=== PATIENT | female | born 1990 | race Two or more races ===

== ENCOUNTER 2018-04-23 17:02 | Outpatient (CLI) | payer MEDICAID ==
--- NOTE | 2018-04-23 21:36 | Ultrasound Report ---
Reason: ENCTR FOR TEST, RESULT POSITIVE Procedure Date: 04/23/2018 Accession Number: [id number] / [id number] Procedure: US - OB First Trimester CPT Code: FULL RESULT: EXAM: FIRST TRIMESTER OBSTETRIC ULTRASOUND (Less than 11 weeks) EXAM DATE: 04/23/2018 05:14 PM. CLINICAL HISTORY: ENCTR FOR TEST, RESULT POSITIVE. LMP: 02/17/2018. COMPARISONS: None. TECHNIQUE: Transabdominal ultrasound examination with static image documentation. CLINICAL DATES: EGA 9 weeks 2 days with DRAKE 11/24/2018 based on LMP. ASSESSMENT: Gestational Sac: Single intrauterine. Embryo: CRL (crown-rump length) 26 mm = 9 weeks 3 days. Cardiac activity: 166 beats per minute. Yolk sac: 3.2 mm. Amniotic fluid: Not accurately assessed at this gestational age. Early placenta: Not visible at this gestational age. Other: No perigestational fluid collection demonstrated. MATERNAL STRUCTURES: Uterus: Anteverted. Unremarkable. Cervix: Closed. Bilateral ovaries appear unremarkable aside from a 9 mm left ovarian corpus luteal cyst. Free Fluid: None. Other: None. IMPRESSION: 1. Single viable intrauterine at EGA 9 weeks 3 days based on crown-rump length, which is concordant with clinical dates. 2. Assigned dating is DRAKE 11/24/2018 based on LMP. HARESH
== END 2018-04-23 17:03 | disposition home or self-care (01) ==
LOC: DI 17:02
PROVIDERS: ATTEND Registered Nurse
DX: Z32.01 Encounter for pregnancy test, result positive (principal); Z3A.09 9 weeks gestation of pregnancy
CPT/HCPCS: 76801

== ENCOUNTER 2018-05-07 08:00 | Outpatient (CLI) | payer MEDICAID ==
[2018-05-07 19:17] LABS: MUDS CUTOFF CONCENTRATIONS CUTOFF CONC BELOW:
[2018-05-07 19:47] LABS: AMPHETAMINE SCREEN,URINE NEGATIVE (NEGATIVE); COCAINE SCREEN URINE NEGATIVE (NEGATIVE); METHAMPHETAMINES SCREEN, URINE NEGATIVE (NEGATIVE); OPIATE SCREEN, URINE NEGATIVE (NEGATIVE)
[2018-05-07 19:48] LABS: BENZODIAZEPINES SCREEN, URINE NEGATIVE (NEGATIVE); METHADONE SCREEN, URINE NEGATIVE (NEGATIVE); OXYCODONE SCREEN, URINE NEGATIVE (NEGATIVE); PROPOXYPHENE SCREEN, URINE NEGATIVE (NEGATIVE); TRICYCLIC ANTIDEPRESSANT,URINE NEGATIVE (NEGATIVE)
== END 2018-05-07 08:01 | disposition home or self-care (01) ==
LOC: LAB.R 08:00
PROVIDERS: ATTEND Registered Nurse
DX: Z36.9 Encounter for antenatal screening, unspecified (principal)
CPT/HCPCS: 80306; 87491; 87591

== ENCOUNTER 2018-05-22 11:41 | Outpatient (CLI) | payer MEDICAID ==
[2018-05-22 11:58] LABS: BASOPHILS # (AUTO) 0.1 10^3/uL (0.0-0.1); BASOPHILS % (AUTO) 0.7 %; BILIRUBIN,URINE NEGATIVE (NEGATIVE); EOSINOPHILS # (AUTO) 0.1 10^3/uL (0.0-0.7); EOSINOPHILS % (AUTO) 1.3 %; GLUCOSE, URINE (UA) NEGATIVE (NEGATIVE); HGB - HEMOGLOBIN 12.8 g/dL (12.0-16.0); KETONES,URINE (UA) NEGATIVE (NEGATIVE); LEUKOCYTE ESTERASE, URINE TRACE (NEGATIVE); LYMPHOCYTES # (AUTO) 2.1 10^3/uL (1.5-3.5); LYMPHOCYTES % (AUTO) 18.3 %; MEAN CORPUSCULAR HEMOGLOBIN 29.7 pg (27.0-31.0); MEAN CORPUSCULAR HGB CONC 34.1 g/dL (32.0-36.0); MEAN PLATELET VOLUME 7.8 fL (7.9-10.8); MONOCYTES # (AUTO) 0.8 10^3/uL (0.0-1.0); MONOCYTES % (AUTO) 6.9 %; NEUTROPHILS # (AUTO) 8.4 10^3/uL (1.5-6.6); NEUTROPHILS % (AUTO) 72.8 %; NITRITE,URINE NEGATIVE (NEGATIVE); OCCULT BLOOD,URINE TRACE-INTA (NEGATIVE); PLT - PLATELET COUNT 240 10^3/uL (130-450); PROTEIN,URINE NEGATIVE (NEGATIVE); RED CELL DISTRIBUTION WIDTH 13.2 % (12.0-15.0); UROBILINOGEN,URINE 0.2 (NORMAL) E.U./dL (NORMAL); WHITE BLOOD COUNT 11.6 x10^3/uL (4.8-10.8)
[2018-05-22 12:04] LABS: CLARITY,URINE HAZY (CLEAR); RBC,URINE 0-5 /HPF (0-5); SQUAMOUS EPITHELIAL CELL,UR MOD Squamous (<= Few)
[2018-05-22 12:05] LABS: BACTERIA,URINE Few /HPF (None Seen)
[2018-05-22 12:17] LABS: HB2 TOTAL 13.6 g/dL; HEMOGLOBIN A1C 0.51 g/dL; HEMOGLOBIN A1C % 5.6 % (4.6-6.2)
[2018-05-24 12:46] LABS: HEPATITIS B SURFACE ANTIGEN NON-REACTIVE (NON-REACTIVE); HEPATITIS C ANTIBODY NON-REACTIVE (NON-REACTIVE)
[2018-05-24 13:27] LABS: HIV AG/AB 4TH GEN NON-REACTIVE (NON-REACTIVE)
== END 2018-05-22 11:42 | disposition home or self-care (01) ==
LOC: LAB 11:41
PROVIDERS: ATTEND Registered Nurse
DX: Z36.9 Encounter for antenatal screening, unspecified (principal)
CPT/HCPCS: 36415; 81001; 81599; 82947; 83036; 85025; 86592; 86762; 86803; 86850; 86900; 86901; 87340; 87389

== ENCOUNTER 2018-05-24 18:30 | Emergency (ER) | payer MEDICAID ==
[2018-05-24 18:42] VITALS: BP 113/71
[2018-05-24 20:02] LABS: BILIRUBIN,URINE NEGATIVE (NEGATIVE); GLUCOSE, URINE (UA) NEGATIVE (NEGATIVE); KETONES,URINE (UA) NEGATIVE (NEGATIVE); LEUKOCYTE ESTERASE, URINE SMALL (NEGATIVE); NITRITE,URINE NEGATIVE (NEGATIVE); OCCULT BLOOD,URINE MODERATE (NEGATIVE); PROTEIN,URINE NEGATIVE (NEGATIVE); UROBILINOGEN,URINE 0.2 (NORMAL) E.U./dL (NORMAL)
[2018-05-24 20:04] LABS: CLARITY,URINE CLOUDY (CLEAR)
[2018-05-24 20:11] LABS: BACTERIA,URINE None Seen /HPF (None Seen); SQUAMOUS EPITHELIAL CELL,UR RARE Squamous (<= Few)
[2018-05-24 20:12] LABS: CRYSTALS,URINE 3-5 Calcium Oxalate /LPF
[2018-05-24] MEDS ORDERED: NITROFURANTOIN MACRO 100 MG CAPSULE PO STA (22:21)
--- NOTE | 2018-05-24 22:23 | ED Physician Documentation ---
PD HPI FEMALE - Stated complaint Stated Complaint: FEMALE /14 WKS - Chief complaint Chief Complaint: UTI - History obtained from History obtained from: Patient - History of Present Illness Timing - onset: Other (G5 at 14 weeks with urinary dysuria and frequency for 2 days without flank pain or fevers. No vaginal bleeding or cramping.) Review of Systems Constitutional: denies: Fever, Chills GI: denies: Abdominal Pain, Nausea, Vomiting : reports: Dysuria, Frequency. denies: Incontinent, Hematuria, Discharge PD PAST MEDICAL HISTORY - Past Medical History Past Medical History: No Cardiovascular: None Respiratory: None Neuro: None Endocrine/Autoimmune: None GI: None AUTOMATION TESTER: None : None HEENT: None Psych: None Musculoskeletal: None Derm: None - Past Surgical History Past Surgical History: No - Present Medications Home Medications: Ambulatory Orders Medication Instructions Recorded Confirmed Nitrofurantoin Monohyd/M-Cryst 100 mg PO BID #10 capsule 05/24/18 [Macrobid 100 mg Capsule] - Allergies Allergies/Adverse Reactions: Allergies Allergy/AdvReac Type Severity Reaction Status Date / Time No Known Drug Allergies Allergy Verified 05/24/18 18:42 - Social History Does the pt smoke?: No Smoking Status: Never smoker Does the pt drink ETOH?: No Does the pt have substance abuse?: No - Immunizations Immunizations are current?: Yes - POLST Patient has POLST: No PD ED PE NORMAL - Vitals Vital signs reviewed: Yes - General General: Alert and oriented X 3, No acute distress - Abdomen Abdomen: Normal bowel sounds, Soft, Non tender - Female Female : Other (Bedside ultrasound demonstrates single live intrauterine with heart rate of 146) - Back Back: No CVA TTP - Neuro Neuro: Alert and oriented X 3 - Psych Psych: Normal mood, Normal affect Results - Vitals Vitals: Vital Signs - 24 hr 05/24/18 18:39 Temperature 37.1 C Heart Rate 76 Respiratory 16 Rate Blood Pressure 113/71 O2 Saturation 100 Oxygen O2 Source Room air - Labs Labs: Laboratory Tests 05/24/18 18:51 Urine Color YELLOW Urine Clarity CLOUDY Urine pH 5.0 Ur Specific [place] >=1.030 H Urine Protein NEGATIVE Urine Glucose (UA) NEGATIVE Urine Ketones NEGATIVE Urine Occult Blood MODERATE H Urine Nitrite NEGATIVE Urine Bilirubin NEGATIVE Urine Urobilinogen 0.2 (NORMAL) Ur Leukocyte Esterase SMALL H Urine RBC 11-25 H Urine WBC 11-25 H Ur Squamous Epith Cells RARE Squamous Urine Crystals 3-5 Calcium Oxalate Urine Bacteria None Seen Ur Microscopic Review INDICATED Urine Culture Comments INDICATED Departure - Departure Disposition: 01 Home, Self Care Clinical Impression: Cystitis Condition: Good Record reviewed to determine appropriate education?: Yes Instructions: ED UTI Cystitis Female Prescriptions: Nitrofurantoin Monohyd/M-Cryst [Macrobid 100 mg Capsule] 100 mg PO BID #10 caps ule Comments: We will culture your urine, the results should be done in 48-72 hours. If an antibiotic change is necessary we will call you. Return if worse in the meantime, especially if you develop increasing flank pain, fevers, or cannot keep down the medication.
== END 2018-05-24 22:31 | disposition home or self-care (01) ==
LOC: ED 18:30
DX: O23.12 Infections of bladder in pregnancy, second trimester (principal); Z3A.14 14 weeks gestation of pregnancy
CPT/HCPCS: 81001; 87086; 87181; 99283; A9270; 81003

== ENCOUNTER 2018-06-03 09:54 | Outpatient (CLI) | payer MEDICAID | END 2018-06-03 09:55 | disposition home or self-care (01) | LOC: LAB.R 09:54 | PROVIDERS: ATTEND Obstetrics & Gynecology | DX: R82.998 Other abnormal findings in urine (principal) | CPT/HCPCS: 87086; 87181 ==

== ENCOUNTER 2018-07-12 07:22 | Outpatient (CLI) | payer MEDICAID ==
--- NOTE | 2018-07-12 15:29 | Ultrasound Report ---
Reason: ENCOUNTER FOR SCREENING,UNSPECIFIED Procedure Date: 07/12/2018 Accession Number: [id number] / [id number] Procedure: US - OB Detailed Eval CPT Code: FULL RESULT: EXAM: COMPLETE OBSTETRICAL ULTRASOUND EXAM DATE: 07/12/2018 09:32 AM. CLINICAL HISTORY: anatomic survey. COMPARISON: OB FIRST TRIMESTER 04/23/2018 5:14 PM. TECHNIQUE: Real-time sonographic evaluation of the fetus performed by the bone char kiln operator. Multiple jewelry sales representative static images were saved for review. Additional transvaginal imaging to more accurately evaluate cervical length/placental position/etc. DATING: Established EGA 20 weeks 5 days with DRAKE 11/24/2018 based on by physician-stated. This compares favorably to DRAKE by first ultrasound of 11/23/2018 and today's ultrasound DRAKE of 11/22/2018. GENERAL EVALUATION [place] . Cardiac activity: 149 bpm. movement: Visualized. Presentation: Variable. Placenta: Posterior position. No evidence for previa. Umbilical cord: 3 vessel cord. Central placental cord origin. Amniotic fluid: Subjectively normal. Four-quadrant GASPER 13 cm. MVP 3.7 cm. BIOMETRY Bi-Parietal Diameter (BPD): 4.9 cm, 20 weeks 6 days. Head Circumference (HC): 18.4 cm, 20 weeks 5 days. Abdominal Circumference (AC): 17.4 cm, 22 weeks 2 days. Femur Length (FL): 3.2 cm, 20 weeks 0 days. Estimated Weight: 414 g. ANATOMY The intracranial structures, profile, face/nose/lips, spine, 4 chamber heart and outflow tracts, stomach, abdominal wall and cord insertion, diaphragm, kidneys, bladder, and extremities were visualized and demonstrate no abnormality. MATERNAL STRUCTURES Uterus: Unremarkable. Cervix: Long and closed. Transabdominal length 4 cm. Right ovary/adnexa: Not specifically imaged. Left ovary/adnexa: Not specifically imaged IMPRESSION: 1. Fraire live intrauterine with gestational age 20 weeks 5 days based on physician-stated. 2. Estimated weight is within expected limits for assigned dating. 3. Normal anatomic survey. No anatomic abnormalities are detected at this time. RADIA
== END 2018-07-12 07:23 | disposition home or self-care (01) ==
LOC: DI 07:22
PROVIDERS: ATTEND Nurse Practitioner Obstetrics & Gynecology
DX: Z36.9 Encounter for antenatal screening, unspecified (principal); Z3A.20 20 weeks gestation of pregnancy
CPT/HCPCS: 76811

== ENCOUNTER 2018-08-13 16:58 | Outpatient (CLI) | payer MEDICAID ==
[2018-08-13 18:23] LABS: HGB - HEMOGLOBIN 11.4 g/dL (12.0-16.0); MEAN CORPUSCULAR HEMOGLOBIN 29.1 pg (27.0-31.0); MEAN CORPUSCULAR HGB CONC 32.4 g/dL (32.0-36.0); MEAN CORPUSCULAR VOLUME 89.7 fL (81.0-99.0); MEAN PLATELET VOLUME 7.3 fL (7.9-10.8); RED BLOOD COUNT 3.91 10^6/uL (4.20-5.40); RED CELL DISTRIBUTION WIDTH 14.2 % (12.0-15.0); WHITE BLOOD COUNT 16.1 x10^3/uL (4.8-10.8)
== END 2018-08-13 16:59 | disposition home or self-care (01) ==
LOC: LAB 16:58
PROVIDERS: ATTEND Registered Nurse
DX: Z33.1 Pregnant state, incidental (principal)
CPT/HCPCS: 36415; 82950; 85027; 86850

== ENCOUNTER 2018-09-10 08:00 | Outpatient (CLI) | payer MEDICAID | END 2018-09-10 23:59 | disposition home or self-care (01) | LOC: LAB.R 08:00 | PROVIDERS: ATTEND Nurse Practitioner Obstetrics & Gynecology | DX: R82.998 Other abnormal findings in urine (principal) | CPT/HCPCS: 87086; 87181 ==

== ENCOUNTER 2018-09-24 08:00 | Outpatient (CLI) | payer OTHER, MEDICAID | END 2018-09-24 23:59 | disposition home or self-care (01) | LOC: LAB.R 08:00 | PROVIDERS: ATTEND Nurse Practitioner Obstetrics & Gynecology | DX: R82.998 Other abnormal findings in urine (principal) | CPT/HCPCS: 87086 ==

== ENCOUNTER 2018-10-25 08:00 | Outpatient (CLI) | payer OTHER, MEDICAID | END 2018-10-25 23:59 | disposition home or self-care (01) | LOC: LAB.R 08:00 | PROVIDERS: ATTEND Nurse Practitioner Obstetrics & Gynecology | DX: Z36.85 Encounter for antenatal screening for Streptococcus B (principal); Z36.89 Encounter for other specified antenatal screening; O23.599 Infection of other part of genital tract in pregnancy, unspecified trimester | CPT/HCPCS: 87480; 87491; 87510; 87591; 87660; 87797 ==

== ENCOUNTER 2018-10-25 09:17 | Outpatient (CLI) | payer OTHER, MEDICAID ==
[2018-10-26 13:12] LABS: HIV AG/AB 4TH GEN NON-REACTIVE (NON-REACTIVE)
[2018-10-26 15:12] LABS: HEPATITIS C ANTIBODY NON-REACTIVE (NON-REACTIVE)
[2018-10-27 13:41] LABS: HSV 2 IGG TYPE SPECIFIC AB <0.90 index
== END 2018-10-25 09:18 | disposition home or self-care (01) ==
LOC: LAB 09:17
PROVIDERS: ATTEND Nurse Practitioner Obstetrics & Gynecology
DX: Z36.89 Encounter for other specified antenatal screening (principal)
CPT/HCPCS: 36415; 81599; 86592; 86695; 86696; 86803; 87389; 87522

== ENCOUNTER 2018-11-12 06:01 | Inpatient (IN) | payer OTHER, MEDICAID ==
[2018-11-12 07:20] LABS: RUPTURE OF MEMBRANES PLUS POSITIVE (NEGATIVE)
[2018-11-12] MEDS ORDERED: ONDANSETRON 4 MG/2 ML VIAL IVP PRN (08:07)
[2018-11-12] MEDS ORDERED: fentaNYL 100 MCG/2 ML VIAL IVP PRN (08:07)
[2018-11-12] MEDS ORDERED: SODIUM CHLORIDE FLUSH 0.9% 10 ML SYRINGE IVP PRN (08:07)
--- NOTE | 2018-11-12 09:48 | HISTORY & PHYSICAL EXAMINATION ---
History of Present Illness - History of Present Illness HPI Comment/Other: I am covering for CNM for part of the day today. Pt is established with CNM care. CC: contractions HPI: had some contractions last night, wanted eval. Had clear copious loss of fluid in triage at 06:35. No bleeding. Good FM. No increase in UC activity since LOF. PMH: overweight, recurrent UTI this PSH: neg Allergies: NKDA Meds: PNV SH: no t/e/d. Quit tobacco when . OB: , TAB x2, at term X2 without complication. This has been uncomplicated. FH: no anesthesia problems O: AVSS Alert, smiling, NAD. No significant UC witnessed during our visit. Abd soft, nt/nd, gravid. Fundus nontender. EFW 8.25#, vertex by seferino CAteogry 1 NST [place] irregular ROM plus is positive A/P: 28yo at 38w2d by LMP c/w 9w US, presents with PROM clear at 06:35. GBS neg, Vertex, EFW 8.25#, uncomplicated , no history of problems with delivery. --Will obs for a few hours to see if her UCs become more intense --If not then will add pitocin (vs. nipple stim) --s/p Tdap and flu vax. A+, rubella immune --Pt was offered and she would like to have hemoglobinopathy and varicella screening--can draw with her CBC. --Encouraged pt to remain smoke-free even with the stressful event of going home. History - Past Medical History Cardiovascular: reports: None Respiratory: reports: None Neuro: reports: None Endocrine/Autoimmune: reports: None GI: reports: None SALES ATTENDANT: reports: None : reports: None HEENT: reports: None Psych: reports: None Musculoskeletal: reports: None Derm: reports: None MRSA Hx?: No - POLST Patient has POLST: No Meds/Allgy - Home Medications Home Medications: Ambulatory Orders Medication Instructions Recorded Confirmed Nitrofurantoin Monohyd/M-Cryst 100 mg PO BID #10 capsule 05/24/18 [Macrobid 100 mg Capsule] - Allergies Allergies/Adverse Reactions: Allergies Allergy/AdvReac Type Severity Reaction Status Date / Time No Known Drug Allergies Allergy Verified 05/24/18 18:42 Exam - Vital Signs Vital Signs: Vital Signs x48h Temp Pulse Resp BP Pulse Ox 11/12/18 06:11 97.9 F 89 18 133/75 H 100
[2018-11-12 10:42] LABS: BASOPHILS % (AUTO) 0.4 %; EOSINOPHILS % (AUTO) 1.1 %; MEAN CORPUSCULAR HGB CONC 32.7 g/dL (32.0-36.0); MEAN CORPUSCULAR VOLUME 88.7 fL (81.0-99.0); MEAN PLATELET VOLUME 8.4 fL (7.9-10.8); MONOCYTES % (AUTO) 7.2 %; NEUTROPHILS % (AUTO) 76.3 %; PLT - PLATELET COUNT 251 10^3/uL (130-450); RED CELL DISTRIBUTION WIDTH 15.1 % (12.0-15.0); WHITE BLOOD COUNT 11.7 x10^3/uL (4.8-10.8)
[2018-11-12 11:04] LABS: ABNORMAL LYMPHS % (MANUAL) 0 %
[2018-11-12 11:07] LABS: BAND NEUTROPHILS % (MANUAL) 1 %; EOSINOPHILS # (MANUAL) 0.4 10^3/uL (0-0.7); LYMPHOCYTES # (MANUAL) 1.1 10^3/uL (1.5-3.5); LYMPHOCYTES % (MANUAL) 9 %; METAMYELOCYTES % (MANUAL) 1 %; MONOCYTES # (MANUAL) 0.7 10^3/uL (0.0-1.0); MYELOCYTES % (MANUAL) 1 %; NEUTROPHILS # (MANUAL) 9.4 10^3/uL (1.5-6.6); NEUTROPHILS % (MANUAL) 79 %
[2018-11-12 11:10] LABS: DIFFERENTIAL COMMENT MANUAL DIFFERENTIAL; PLATELET ESTIMATE, MANUAL NORMAL (130-450,000) (NORMAL); PLATELET MORPHOLOGY NORMAL APPEARANCE (NORMAL); RBC MORPHOLOGY (MULTIPLE) 1+ ANISOCYTOSIS (NORMAL)
--- NOTE | 2018-11-12 12:37 | PROVIDER PROGRESS NOTE ---
Subjective - Subjective Subjective: UC are not any stronger. Nothing new. AVSS FHTs 140 A/P: no contractions, PROM clear for 6h. Time to start pitocin augmentation, pt agrees. Vertex, proven pelvis, GBS neg, 8.25# by seferino. Objective - Vital Signs/Intake & Output Vital Signs: Vital Signs x48h Temp Pulse Resp BP Pulse Ox 11/12/18 06:11 97.9 F 89 18 133/75 H 100 - Lab Results Fish Bones: 11/12/18 08:35 Other Labs: Lab Results x24hrs 11/12/18 11/12/18 Range/Units 08:35 06:45 WBC 11.7 H (4.8-10.8) x10^3/uL RBC 4.50 (4.20-5.40) 10^6/uL Hgb 13.0 (12.0-16.0) g/dL Hct 39.9 (37.0-47.0) % MCV 88.7 (81.0-99.0) fL MCH 29.0 (27.0-31.0) pg MCHC 32.7 (32.0-36.0) g/dL RDW 15.1 H (12.0-15.0) % Plt Count 251 (130-450) 10^3/uL MPV 8.4 (7.9-10.8) fL Neut # (Auto) Not Reportable Lymph # (Auto) Not Reportable [place] # (Auto) Not Reportable Eos # (Auto) Not Reportable Baso # (Auto) Not Reportable Absolute Nucleated RBC Not Reportable Total Counted 100 Band Neuts % (Manual) 1 (0 - 10) % Abnorm Lymph % (Manual) 0 % Metamyelocytes % 1 H ( - 0) % Myelocytes % 1 H ( - 0) % Nucleated RBC % Not Reportable Neutrophils # (Manual) 9.4 H (1.5-6.6) 10^3/uL Lymphocytes # (Manual) 1.1 L (1.5-3.5) 10^3/uL Monocytes # (Manual) 0.7 (0.0-1.0) 10^3/uL Eosinophils # (Manual) 0.4 (0-0.7) 10^3/uL Basophils # (Manual) 0.0 (0-0.1) 10^3/uL Differential Comment MANUAL DIFFERENTIAL WBC Morphology 1+ TOXIC GRANULATION (NORMAL) Platelet Estimate NORMAL (130-450,000) (NORMAL) Platelet Morphology NORMAL APPEARANCE (NORMAL) RBC Morph Micro Appear 1+ ANISOCYTOSIS (NORMAL) Membranes Rupture POSITIVE A (NEGATIVE)
[2018-11-12] MEDS ORDERED: OXYTOCIN/SODIUM CHLORIDE 500 ML IV SCH (13:00)
[2018-11-12] MEDS ORDERED: LACTATED RINGERS 1,000 ML IV SCH (13:00)
[2018-11-12] MEDS: SODIUM CHLORIDE FLUSH 0.9% 10 ML SYRINGE IVP SCH ×2 (13:00→16:43)
--- NOTE | 2018-11-12 17:33 | PROVIDER PROGRESS NOTE ---
Subjective - Subjective Subjective: Now feeling a change in UC, more cramping and more pressure. AVSS Cat 1 NST [employer] q2-3min Pit at 8 3.5/80/-3/post/soft A/P: Pit now is starting to effect symptoms. Recheck SVE in 4h. Objective - Vital Signs/Intake & Output Intake & Output: Intake & Output 11/09/18 11/10/18 11/11/18 11/12/18 23:59 23:59 23:59 23:59 Intake Total 14.7 Balance 14.7 - Lab Results Fish Bones: 11/12/18 08:35 Other Labs: Lab Results x24hrs 11/12/18 11/12/18 Range/Units 08:35 06:45 WBC 11.7 H (4.8-10.8) x10^3/uL RBC 4.50 (4.20-5.40) 10^6/uL Hgb 13.0 (12.0-16.0) g/dL Hct 39.9 (37.0-47.0) % MCV 88.7 (81.0-99.0) fL MCH 29.0 (27.0-31.0) pg MCHC 32.7 (32.0-36.0) g/dL RDW 15.1 H (12.0-15.0) % Plt Count 251 (130-450) 10^3/uL MPV 8.4 (7.9-10.8) fL Neut # (Auto) Not Reportable Lymph # (Auto) Not Reportable [place] # (Auto) Not Reportable Eos # (Auto) Not Reportable Baso # (Auto) Not Reportable Absolute Nucleated RBC Not Reportable Total Counted 100 Band Neuts % (Manual) 1 (0 - 10) % Abnorm Lymph % (Manual) 0 % Metamyelocytes % 1 H ( - 0) % Myelocytes % 1 H ( - 0) % Nucleated RBC % Not Reportable Neutrophils # (Manual) 9.4 H (1.5-6.6) 10^3/uL Lymphocytes # (Manual) 1.1 L (1.5-3.5) 10^3/uL Monocytes # (Manual) 0.7 (0.0-1.0) 10^3/uL Eosinophils # (Manual) 0.4 (0-0.7) 10^3/uL Basophils # (Manual) 0.0 (0-0.1) 10^3/uL Differential Comment MANUAL DIFFERENTIAL WBC Morphology 1+ TOXIC GRANULATION (NORMAL) Platelet Estimate NORMAL (130-450,000) (NORMAL) Platelet Morphology NORMAL APPEARANCE (NORMAL) RBC Morph Micro Appear 1+ ANISOCYTOSIS (NORMAL) Membranes Rupture POSITIVE A (NEGATIVE)
[2018-11-12] MEDS ORDERED: LIDOCAINE 1% 50 ML MDV TD ONE (21:00)
[2018-11-12] MEDS ORDERED: LIDOCAINE-MPF 1% 30 ML VIAL SUBQ ONE (21:07)
[2018-11-12] MEDS ORDERED: LIDOCAINE-MPF 1% 30 ML VIAL ONE (21:10)
--- NOTE | 2018-11-12 21:23 | DELIVERY NOTE ---
Delivery Note - Labor Labor: positive: Augmented by oxytocin - Delivery Method Delivery Method: positive: Spontaneous vaginal delivery - Presentation Presentation: positive: Vertex, BUZZ - left occiput anterior - Nuchal Cord Nuchal Cord: positive: Present, Reduced - Anesthetic Anesthetic: positive: Lidocaine - 1% plain Volume: positive: Other (15cc) - Amniotic Fluid Description Amniotic Fluid Description: positive: Clear - Episiotomy Type Episiotomy Type: positive: None - Laceration Laceration: positive: 1st degree, Perineal - Suture Suture Type: positive: Vicryl Suture Size: positive: 2-0 - Delivery Outcome Delivery Outcome: positive: Livebirth - [place]: positive: Placed in direct skin contact with mother, Stimulated, Warmed, [place] used sex: positive: Male - Cord Cord: positive: 3 vessels - Placenta Placenta: positive: Intact, Expressed - Estimated Blood Loss Estimated Blood Loss (in cc): 250 - Post Delivery Events Post Delivery Events: positive: Shoulder dystocia - Delivery Comments (Free Text/Narrative) Delivery Comments (Free Text/Narrative): 28yo P2 now P3 with PROM clear at term. Augmented with pitocin to achieve effective contractions. Pt labored without anesthesia per her request. Reas suring tracing throughout her labor and delivery. Pushed effectively to deliver the head BUZZ over an intact perineum. A loose nuchal was reduced. Shoulder dystoca commenced. Total time estimated at 60 seconds. Pt was laid flat and both knees were brought to her shoulders. Suprapubic pressure was delivered aiming towards the 's face. I used my fingers to rotate the anterior shoulder laterally from under the pubic bone. No excessive traction was placed on the neck. The baby was delivered at that point. He is vigorous and is moving both arms without apparent difficulty.
[2018-11-12] MEDS ORDERED: HYDROCORTISONE 1% CREAM 28 GM TUBE PR PRN (21:24)
[2018-11-12] MEDS ORDERED: diphenhydrAMINE 25 MG CAPSULE PO PRN (21:24)
[2018-11-12] MEDS ORDERED: WITCH HAZEL/GLYCERIN 1 EACH MED..PAD TOP PRN (21:24)
[2018-11-13] MEDS: ACETAMINOPHEN 500 MG TABLET PO SCH ×3 (06:29→15:55)
[2018-11-13] MEDS: SIMETHICONE CHEW 80 MG TABLET PO SCH ×3 (06:29→15:55)
[2018-11-13] MEDS: IBUPROFEN 600 MG TABLET PO SCH ×4 (06:29→15:56)
[2018-11-13] MEDS: DOCUSATE SODIUM 100 MG CAPSULE PO SCH ×2 (08:07→21:05)
[2018-11-13 08:26] LABS: BASOPHILS # (AUTO) 0.1 10^3/uL (0.0-0.1); BASOPHILS % (AUTO) 0.5 %; EOSINOPHILS # (AUTO) 0.1 10^3/uL (0.0-0.7); EOSINOPHILS % (AUTO) 0.4 %; HGB - HEMOGLOBIN 12.6 g/dL (12.0-16.0); LYMPHOCYTES # (AUTO) 2.2 10^3/uL (1.5-3.5); LYMPHOCYTES % (AUTO) 12.6 %; MEAN CORPUSCULAR HEMOGLOBIN 29.4 pg (27.0-31.0); MEAN CORPUSCULAR HGB CONC 33.5 g/dL (32.0-36.0); MEAN CORPUSCULAR VOLUME 87.7 fL (81.0-99.0); MEAN PLATELET VOLUME 7.8 fL (7.9-10.8); MONOCYTES # (AUTO) 1.3 10^3/uL (0.0-1.0); MONOCYTES % (AUTO) 7.5 %; NEUTROPHILS # (AUTO) 13.6 10^3/uL (1.5-6.6); PLT - PLATELET COUNT 223 10^3/uL (130-450); WHITE BLOOD COUNT 17.2 x10^3/uL (4.8-10.8)
--- NOTE | 2018-11-13 10:48 | PROVIDER PROGRESS NOTE ---
Subjective - Subjective Subjective: Feeling well, no problems. Eat, ambulate, urinate, breastfeed well. Breasts, vulva, and abd all feel ok. Mood good. No needs AVSS Alert, smiling, NAD Abd soft, nt/nd Fundus firm, NT, at U No LE edema P3 uncomplicated antepartum course, PPD #1 s/p augmented vaginal delivery at t erm, complicated by a brief shoulder dystocia. Routine care, anticipate discharge tomorrow. --s/p Tdap and flu vax. A+, rubella immune. Varicella pending. --Considering OCP for control, declines LARC or sterilization though she doesn't want to get again. Encouraged her to double up on methods to increase efficacy. Objective - Vital Signs/Intake & Output Vital Signs: Vital Signs x48h Temp Pulse Resp BP Pulse Ox 11/13/18 08:55 98.2 F 104 H 17 112/85 H 99 Intake & Output: Intake & Output 11/10/18 11/11/18 11/12/18 11/13/18 23:59 23:59 23:59 23:59 Intake Total 814.7 2335.3 Output Total 4 800 Balance 810.7 1535.3 - Lab Results Fish Bones: 11/13/18 08:14 Other Labs: Lab Results x24hrs 11/13/18 11/12/18 Range/Units 08:14 08:35 WBC 17.2 H 11.7 H (4.8-10.8) x10^3/uL RBC 4.30 4.50 (4.20-5.40) 10^6/uL Hgb 12.6 13.0 (12.0-16.0) g/dL Hct 37.7 39.9 (37.0-47.0) % MCV 87.7 88.7 (81.0-99.0) fL MCH 29.4 29.0 (27.0-31.0) pg MCHC 33.5 32.7 (32.0-36.0) g/dL RDW 15.0 15.1 H (12.0-15.0) % Plt Count 223 251 (130-450) 10^3/uL MPV 7.8 L 8.4 (7.9-10.8) fL Neut # (Auto) 13.6 H Not Reportable Lymph # (Auto) 2.2 Not Reportable [place] # (Auto) 1.3 H Not Reportable Eos # (Auto) 0.1 Not Reportable Baso # (Auto) 0.1 Not Reportable Absolute Nucleated RBC 0.00 Not Reportable Total Counted 100 Band Neuts % (Manual) 1 (0 - 10) % Abnorm Lymph % (Manual) 0 % Metamyelocytes % 1 H ( - 0) % Myelocytes % 1 H ( - 0) % Nucleated RBC % 0.0 Not Reportable Neutrophils # (Manual) 9.4 H (1.5-6.6) 10^3/uL Lymphocytes # (Manual) 1.1 L (1.5-3.5) 10^3/uL Monocytes # (Manual) 0.7 (0.0-1.0) 10^3/uL Eosinophils # (Manual) 0.4 (0-0.7) 10^3/uL Basophils # (Manual) 0.0 (0-0.1) 10^3/uL Differential Comment MANUAL DIFFERENTIAL WBC Morphology 1+ TOXIC GRANULATION (NORMAL) Platelet Estimate NORMAL (130-450,000) (NORMAL) Platelet Morphology NORMAL APPEARANCE (NORMAL) RBC Morph Micro Appear 1+ ANISOCYTOSIS (NORMAL)
[2018-11-14] MEDS: SIMETHICONE CHEW 80 MG TABLET PO SCH ×2 (06:23→06:25)
[2018-11-14] MEDS: IBUPROFEN 600 MG TABLET PO SCH ×2 (06:23→06:24)
[2018-11-14] MEDS: ACETAMINOPHEN 500 MG TABLET PO SCH ×2 (06:23→06:24)
[2018-11-14 08:06] VITALS: BP 118/60
--- NOTE | 2018-11-14 09:46 | Discharge Plan ---
Discharge Plan Disposition: 01 Home, Self Care Condition: Good Diet: Regular Activity Restrictions: Vaginal rest for 6 weeks Shower Restrictions: No Driving Restrictions: No Additional Instructions or Follow Up instructions: Follow up in 3 weeks with [facility] No Smoking: If you smoke, Please STOP! Call for help. Follow-up with: Mayra Soto CNM, LIA [Provider Admit Priv/Credential] -
[2018-11-14] MEDS: DOCUSATE SODIUM 100 MG CAPSULE PO SCH (10:08)
--- NOTE | 2018-11-14 10:26 | DISCHARGE SUMMARY ---
Physician: Sylvia Lobato MD DATE OF ADMISSION: 11/12/2018 DATE OF DISCHARGE: 11/14/2018 ADMISSION DIAGNOSES 1. Premature rupture of membranes. 2. Intrauterine at 38 weeks 2 days. DISCHARGE DIAGNOSES 1. Status post spontaneous vaginal delivery at term. 2. Shoulder dystocia. 3. Large for gestational age infant. OPERATIONS AND PROCEDURES: On 11/12/2018 spontaneous vaginal delivery of a live born male. Apgars were 2 and 9. Weight was 9-1/2 pounds. There was a first- degree laceration that was repaired. HOSPITALIZATION: The patient was admitted with PROM at term. She did not start ita on her own, and so she was augmented with Pitocin. She became complete and pushed for about 20 minutes to deliver over an intact perineum. The patient did have shoulder dystocia that lasted for about 45 seconds. This resolved with Pia suprapubic pressure and a Wagner screw. The patient's course was unremarkable. By day 1-12, she was requesting discharge home. She was eating, ambulating, urinating, and defecating without difficulties. was going well, and her breasts were doing fine. Mood was fine, and there was no heavy bleeding. There was no significant pain in her abdomen or vulva, and she had not taken any pain medicines during her hospitalization. DISCHARGE EXAMINATION VITAL SIGNS: Afebrile with normal vital signs. GENERAL: Alert and pleasant, in no apparent distress. ABDOMEN: Soft, nontender, nondistended. Fundus firm, nontender, and 2 cm below the umbilicus. EXTREMITIES: There was trace lower extremity edema bilaterally. LABORATORY DATA: hematocrit was 37.7. DISCHARGE DISPOSITION: Home. CONDITION: Good. FOLLOWUP: Follow up in 3 weeks with the midwives at [facility]. MEDICATIONS 1. Continue vitamins. 2. Prescriptions for ibuprofen and Colace were also given per routine. OUTSTANDING LABORATORIES: Varicella immunity and hemoglobinopathy panel. TD: 11/14/2018 09:55 AILYN
--- NOTE | 2018-11-14 11:41 | Labor Flowsheet ---
Labor Flowsheet Datetime Report Generated by CPN: 11/14/2018 11:40 Datetime: 11/14/2018 08:02 VITAL SIGNS NBP Sys/[place]/Mean (mmHg): 118 : 60 : 74 Pulse: 82 Datetime: 11/12/2018 21:14 Stage of : Recovery Datetime: 11/12/2018 20:45 FHR Baseline Rate : 145 Datetime: 11/12/2018 20:31 LaborFlag: Labor Datetime: 11/12/2018 20:30 UTERINE ACTIVITY Monitor Mode: External Frequency (min): 2-3 Quality: Moderate Duration (sec): 90-150 Pattern: Normal: <= 5 Contractions in 10 Minutes Resting Tone (Palpate): Relaxed ASSESSMENT A Monitor Mode: External US Variability: Moderate 6-25 bpm Accelerations: 15X15 Decelerations: None Category: Category I Datetime: 11/12/2018 20:20 Patient Position/Activity: High Fowlers Datetime: 11/12/2018 20:17 Membrane Status: Ruptured Membranes Rupture Method: Spontaneous Amniotic Fluid Color: Clear Amniotic Fluid Amount: Moderate Amniotic Fluid Odor: Normal Membrane Comments: Forebag SROM Datetime: 11/12/2018 20:13 VAGINAL EXAM Dilatation (cm): 9.0 Effacement (%): 100 Station: 0 Exam by: gisell FERRARO Vaginal Bleeding: Normal Show Cervix, Consistency: Soft Cervix, Position: Midposition Vaginal Exam Comments: bulging membranes Datetime: 11/12/2018 19:44 Patient Care Comments: rocking side to side Datetime: 11/12/2018 19:41 Temperature (C): 36.4 Datetime: 11/12/2018 19:30 PAIN Pain Scale: 9 Pain Presence: Intermittent Pain Type: Contraction Pain Location: Back; Right Leg; Left Leg Pain Relief Measures: Comfort Measures Pain Coping: Breathing Through Contractions; Declines Medication or Epidural Pain Assessment Comments: pt. leaning over side of bed and rocking side to side. MEDICATIONS Pitocin (milliunits): continues at 8 mu/min Comfort Measures: Breathing/Relaxation; Coaching; Back Rub Given; Family Support Datetime: 11/12/2018 19:20 Monitor Interventions for FHR: Ultrasound Adjusted Datetime: 11/12/2018 19:15 Comments: variables to 120-130's with contraction with return to baseline. Datetime: 11/12/2018 19:14 COMMUNICATION Communication: Report Given to @ PM shift Datetime: 11/12/2018 19:00 Contraction Comments: Very uncomfortable with contractions Datetime: 11/12/2018 18:15 Monitor Interventions for UA: [place] Adjusted Datetime: 11/12/2018 18:06 I/O Interventions: Up to BR Datetime: 11/12/2018 18:00 Respirations: 16 SpO2 (%): 98 Datetime: 11/12/2018 17:15 Communication Comments: Dr. Luis Alfredo @ bedside Datetime: 11/12/2018 14:45 FHR Baseline Changes: No Baseline Change Datetime: 11/12/2018 13:00 Pitocin Checklist: At Least 1 Acceleration of 15 bpm x 15 Seconds in 30 Minutes or Adequate Variabi lity; No More than 1 Late Deceleration Occurred in Past 30 Minutes; No More than 2 Variable Decelerat ions > 60 Seconds in Duration and decreasing >60 bpm in 30 minutes; No More than 5 Uterine Contractio ns in 10 Minutes for any 20 Minute Interval; Uterus Palpates Soft between Contractions PATIENT CARE IV/Blood Work: IV Infusing per Order; IV Bag Number @ 1
== END 2018-11-14 11:35 | disposition home or self-care (01) | DRG 807 ==
LOC: WFO 06:01 → FBP 06:02 → WFO 08:06 → FBP 08:07
PROVIDERS: ADMIT Obstetrics & Gynecology; ATTEND Registered Nurse
PROC: 10E0XZZ Delivery of Products of Conception, External Approach (ICD-10-PCS; principal; 2018-11-12)
PROC: 0HQ9XZZ Repair Perineum Skin, External Approach (ICD-10-PCS; 2018-11-12)
DX: O99.214 Obesity complicating childbirth (principal); Z37.0 Single live birth; O42.02 Full-term premature rupture of membranes, onset of labor within 24 hours of rupture; O69.9XX0 Labor and delivery complicated by cord complication, unspecified, not applicable or unspecified; O70.0 First degree perineal laceration during delivery; O66.0 Obstructed labor due to shoulder dystocia; P08.1 Other heavy for gestational age newborn; Z3A.38 38 weeks gestation of pregnancy; Z87.891 Personal history of nicotine dependence; Z87.440 Personal history of urinary (tract) infections
CPT/HCPCS: 36415; 81599; 84112; 85025; 86787; 99213; A9270; J7120